=== PATIENT | male | born 1990 | race Caucasian/White ===

== ENCOUNTER 2021-09-22 11:19 | Emergency (ER) | payer OTHER, SELFPAY ==
[2021-09-22 11:20] VITALS: BP 148/87; PULSE 92; RESP 16; TEMP 36.4; O2SAT 100; O2SAT 98
--- NOTE | 2021-09-22 12:46 | ED.GENADULT ---
HPI - General Adult General Chief complaint: Unspecified Stated complaint: cough Time Seen by Provider: 09/22/21 11:38 Source: patient Mode of arrival: ambulatory Limitations: no limitations History of Present Illness HPI narrative: 30-year-old male here with complaints of 2weeks intermittent cough. Cough is nonproductive. Patient does states he has seasonal allergies which can affect him in the spring and or fall. Patient denies take any allergy medicine. Patient has taken NyQuil at night for the cough. Patient denies fever, body aches, chills, sick contacts, runny nose, congestion, or ear pain. Related Data Allergies Allergy/AdvReac Type Severity Reaction Status Date / Time No Known Allergies Allergy Verified 11/02/18 07:50 Review of Systems Review of Systems: CONSTITUTIONAL: Denies fever, chills, or sweats. EYES: Denies visual changes, redness, or discharge. ENT: Denies rhinorrhea, congestion, sore throat, or otalgia. CARDIOVASCULAR: Denies chest pain, palpitations, or edema. RESPIRATORY: Cough. Denies dyspnea. GASTROINTESTINAL: Denies abdominal pain, nausea, vomiting, or diarrhea. GENITOURINARY: Denies dysuria or hematuria. SKIN: Denies rash or itching. MUSCULOSKELETAL: Denies back pain, joint pain, or myalgia. NEUROLOGIC: Denies headache, numbness, dizziness, or weakness. PSYCHIATRIC: Denies anxiety or depression. [facility] Past Medical History Medical History (Updated 09/22/21 @ 12:02 by Kiesha Soliman APRN) Anal fissure Surgical History Surgical History (Updated 07/14/19 @ 13:36 by Damari Vergara) No pertinent past surgical history Social History Social History (Updated 07/14/19 @ 13:36 by Damari Vergara) Smoking status: Current some day smoker Exam Narrative: GENERAL: Well-appearing, well-nourished, and in no acute distress. HEAD: Normocephalic, atraumatic. EYES: PERRLA and EOMI. ENT: Nares clear, no rhinorrhea or epistaxis. Mucous membranes moist. Oropharynx without tonsillar hypertrophy exudate or other lesions. Bilateral TMs pearly perez nonbulging NECK: Supple. No adenopathy or masses. No carotid bruits or JVD CHEST: Clear to auscultation. No respiratory distress. No wheezes rales or rhonchi HEART: Regular rate and rhythm. No murmur heard. Normal peripheral pulses. ABDOMEN: Soft, nontender, nondistended, normal active bowel sounds. EXTREMITIES: Normal range of motion. No edema. SKIN: Warm, dry, no rash. NEURO: No focal deficits. Alert and oriented x3. PSYCH: Normal mood and affect. Course Vital Signs Vital signs: Vital Signs Temperature 36.4 C 09/22/21 11:20 Pulse Rate 92 09/22/21 11:20 Respiratory Rate 16 09/22/21 11:20 Blood Pressure 148/87 H 09/22/21 11:20 Pulse Oximetry 100 09/22/21 11:20 Temperature 36.4 C 09/22/21 11:20 Pulse Rate 92 09/22/21 11:20 Respiratory Rate 16 09/22/21 11:20 Blood Pressure 148/87 H 09/22/21 11:20 Pulse Oximetry 98 09/22/21 11:20 Medical Decision Making Differential Diagnosis Differential Diagnosis: Seasonal allergies, cough, bronchitis, URI Medical Records Medical records reviewed: Yes I reviewed the external patient's medical records. Vital Signs Vital Signs: Vital Signs Temperature 36.4 C 09/22/21 11:20 Pulse Rate 92 09/22/21 11:20 Respiratory Rate 16 09/22/21 11:20 Blood Pressure 148/87 H 09/22/21 11:20 Pulse Oximetry 100 09/22/21 11:20 Temperature 36.4 C 09/22/21 11:20 Pulse Rate 92 09/22/21 11:20 Respiratory Rate 16 09/22/21 11:20 Blood Pressure 148/87 H 09/22/21 11:20 Pulse Oximetry 98 09/22/21 11:20 Discharge Plan Discharge Clinical Impression: Bronchitis, Seasonal allergies Patient Disposition: Home, Self-Care Condition: Stable Instructions: Antibiotic Form Additional Instructions: Use fluticasone 2 sprays each nostril daily until symptoms are improving then may decrease to 1 spray each nostril daily. Use saline nasal spray as needed for
== END 2021-09-22 12:13 | disposition home or self-care (01) ==
PROVIDERS: Emergency Provider Nurse Practitioner Family
DX: J40 Bronchitis, not specified as acute or chronic (principal); J30.2 Other seasonal allergic rhinitis; F17.200 Nicotine dependence, unspecified, uncomplicated
CPT/HCPCS: 99283

== ENCOUNTER 2021-11-22 16:40 | Emergency (ER) | payer OTHER, SELFPAY ==
--- NOTE | ~2021-11-22 | XR_ITS ---
XR foot LT min 3V 11/22/2021 16:57 Indication: Left foot pain Procedure: 4 views left foot Comparison: No prior studies for comparison. Findings: No fracture, subluxation or dislocation. Lisfranc joint intact. There is a healed fifth met atarsal fracture. Impression: 1: No acute bone or joint abnormality. Reviewed, dictated and finalized at location A. Impression: 1: No acute bone or joint abnormality.
[2021-11-22 16:44] VITALS: BP 144/112; PULSE 100; RESP 20; TEMP 36.7; O2SAT 100
--- NOTE | 2021-11-22 18:09 | ED.LOWEXIN ---
HPI - Extremity Injury (Lower) General Chief Complaint: Extremity Injury, Lower Stated Complaint: fall Time Seen by Provider: 11/22/21 17:04 Source: patient Mode of arrival: wheelchair Limitations: no limitations History of Present Illness HPI Narrative: This is a 30 year old male that presents to the ER for an injury to his left foot sustained just prior to arrival. Reports he tripped and twisted his left foot. Reports swelling and pain to the dorsal aspect. Reports decreased ROM due to pain. Denies numbness. Related Data Allergies Allergy/AdvReac Type Severity Reaction Status Date / Time No Known Allergies Allergy Verified 11/02/18 07:50 Review of Systems Review of Systems: CONSTITUTIONAL: Denies fever MUSCULOSKELETAL: Reports joint pain, and myalgia. NEUROLOGIC: Denies numbness, or weakness. All systems reviewed & are unremarkable except as noted in HPI and below PMFSH Past Medical History Medical History (Updated 11/22/21 @ 18:16 by Zari Bell PA-C) Anal fissure Surgical History Surgical History (Updated 07/14/19 @ 13:36 by Damari Vergara) No pertinent past surgical history Social History Social History (Updated 07/14/19 @ 13:36 by Damari Vergara) Smoking status: Current some day smoker Exam Narrative: GENERAL: Well-appearing, well-nourished, and in no acute distress. HEAD: Normocephalic, atraumatic. EYES: EOMI. EXTREMITIES: Normal range of motion. Mild edema about the left foot dorsal surface. Normal DP pulse. Normal sensation SKIN: Warm, dry, no rash. NEURO: No focal deficits. Alert and oriented x3. PSYCH: Normal mood and affect Course Vital Signs Vital signs: Vital Signs Temperature 98.0 F 11/22/21 16:44 Pulse Rate 100 11/22/21 16:44 Respiratory Rate 20 11/22/21 16:44 Blood Pressure 144/112 H 11/22/21 16:44 Pulse Oximetry 100 11/22/21 16:44 Oxygen Delivery Room Air 11/22/21 16:44 Temperature 98.0 F 11/22/21 16:44 Pulse Rate 100 11/22/21 16:44 Respiratory Rate 20 11/22/21 16:44 Blood Pressure 144/112 H 11/22/21 16:44 Pulse Oximetry 100 11/22/21 16:44 Oxygen Delivery Room Air 11/22/21 16:44 MDM - Extremity Injury (Lower) MDM Narrative Medical decision making narrative: Patient presents to the emergency department for a left foot injury sustained just prior to arrival. Patient is neurovascularly intact. Left foot x-rays without acute osseous abnormalities. Patient was instructed on care of foot sprain. Placed in Luis wrap and given crutches. He is to follow-up with primary care doctor. He was given warnings to return to the ER Imaging Data Radiologist's impression: ITS Impressions Foot X-Ray 11/22/21 16:59 Impression: 1: No acute bone or joint abnormality. Critical Care Time Critical Care Time Critical Care Time: No Discharge Plan Discharge Clinical Impression: Foot sprain Qualifiers: Encounter type: initial encounter Laterality: left Qualified Code(s): S93.602A - Unspecified sprain of left foot, initial encounter Patient Disposition: Home, Self-Care Condition: Stable Instructions: Foot Sprain (ED) Additional Instructions: Return to the emergency department if you experience fever, redness and swelling of your foot, numbness, or any other symptoms that are concerning to you Wear LUIS wrap and use crutches. No weight on the affected leg until able to bear weight without pain. Ice and elevate extremity. Pain medication as needed and directed. Follow up with primary care doctor for further care. Prescriptions: No Action ibuprofen [IBU] 600 mg tablet 600 mg PO Q6H PRN (Reason: pain) Qty: 20 0RF albuterol sulfate 90 mcg/actuation HFA aerosol inhaler 2 puff inhalation QID PRN (Reason: shortness of breath or wheezing) Qty: 8.5 0RF (DME) Space Chamber Spacer See Rx Instructions .Route Qty: 1 0RF Rx Instructions: As directed fluticasone propionate [Allergy
[2021-11-22 18:29] VITALS: BP 116/68; PULSE 78; RESP 16; O2SAT 100
== END 2021-11-22 18:30 | disposition home or self-care (01) ==
PROVIDERS: Emergency Provider Emergency Medicine
DX: S93.602A Unspecified sprain of left foot, initial encounter (principal); F17.200 Nicotine dependence, unspecified, uncomplicated; W18.40XA Slipping, tripping and stumbling without falling, unspecified, initial encounter; X50.9XXA Other and unspecified overexertion or strenuous movements or postures, initial encounter
CPT/HCPCS: 73630; 99283

== ENCOUNTER 2021-11-27 16:23 | Outpatient (CLI) | payer OTHER, SELFPAY ==
--- NOTE | ~2021-11-27 | XR_ITS ---
EXAMINATION: XR foot LT min 3V DATE: 11/27/2021 16:59 INDICATION: Left foot pain and swelling. Fall. TECHNIQUE: 4 views of left foot were obtained. COMPARISON: Left foot radiographs 11/22/2021 FINDINGS: There is lateral subluxation of second-fourth metatarsals with respect to the tarsal bones, consistent with Lisfranc joint dislocation. There is an old healed fracture of diaphysis of fifth me tatarsal. No acute fracture. There is mild osteoarthritis of first metatarsophalangeal joint. There i s soft tissue swelling of the forefoot. IMPRESSION: 1. Lisfranc joint dislocation. Reviewed, dictated and finalized at location A.
== END 2021-11-27 16:24 | disposition home or self-care (01) ==
DX: S93.335A Other dislocation of left foot, initial encounter (principal); X58.XXXA Exposure to other specified factors, initial encounter
CPT/HCPCS: 73630

== ENCOUNTER 2021-12-13 01:29 | Day surgery (SDC) | payer OTHER, SELFPAY ==
[2021-12-06 09:51] VITALS: BMI 50.1
--- NOTE | 2021-12-06 09:56 | PC.NURSE ---
Report to the Outpatient Waiting Room, entrance under the green pavilion located off [facility], at time 0600 on date 12/13/21. OR Time: 0730. - You and your visitor will be asked a series of questions to screen for COVID 19 for your protection. - Only one visitor is allowed at this time. - The patient visitor is requested to leave or wait in car when not with patient. - A mask is required within the hospital. Patients may have clear liquids (water, carbonated beverages, clear teas, apple juice) until 3 hours prior to surgery with a maximum of 20 ounces. - No food from midnight until time of surgery Take the following medications with a SIP of water the morning of surgery: NONE Medications to discontinue per physician: N/A Date to take last dose: N/A Please no make-up, nail belizean, hairspray, perfume, deodorant, or body powder the day of surgery. No jewelry (including any body piercings) or valuables the day of surgery, leave them at home. Please take a shower or bath the night before, or the morning of, surgery with an antibacterial soap. Wear comfortable, loose fitting clothing. - Jewelry must be removed prior to entering the operating room. Rings and piercings that are not removed may be cut off. - The hospital will not accept responsibility for valuables. - Please leave all valuables, including medications, at home the day of surgery. If you are going home after surgery, a licensed tow bar driver must drive you home. - NO public transportation without another adult. - We recommend that an adult stay with you for 24 hours following discharge. - We also recommend that you do not drive, make important decision, drink alcoholic beverages, or take any drugs that were not prescribed by your health care provider for at least 24 hours after your discharge time. Follow any additional instructions given to you from your surgeon. If you or anyone in your household have experienced Covid symptoms in the past week, please notify your surgeon or the nurse liaison at the phone number below for possible testing. Telephone instructions given to PT - VICTORIA SOLER and asked if any additional questions and then verbalized understanding. Patient advised to call surgeon office or pre surgery nurse liaison [phone] if any additional questions.
[2021-12-13] VITALS (9 sets, daily range): BP systolic 112–163; BP diastolic 70–100; PULSE 75–116; RESP 11–18; TEMP 36.8–36.9; O2SAT 95–98
--- NOTE | ~2021-12-13 | XR_ITS ---
EXAMINATION: XR surgery orthopedic DATE: 12/13/2021 09:00 INDICATION: ORIF left foot TECHNIQUE: 3 fluoroscopic images of the left midfoot were obtained during procedure performed by Dr. Bhatti. Radiologist was not present for the imaging or procedure. The amount of fluoroscopy time use d during this procedure was 0.3 minutes. COMPARISON: 11/27/2021 FINDINGS: Interval open reduction internal fixation of the previous noted Lisfranc joint injury with prior mild lateral subluxation of the second-fourth tarsal metatarsal joints. The lateral subluxation appears t o been reduced to essentially anatomic alignment. There is dorsal plate and screw fixation across the second tarsal metatarsal joint. Small fixation plate seen at the lateral margin of the base of the s econd metatarsal likely for tightrope type fixation along the course of the likely ruptured Lisfranc ligament complex. Sponge marker projects medial to the midfoot. No fractures identified. Expected sma ll amount of postoperative gas in the soft tissues about the base of the second metatarsal. IMPRESSION: 1. Near-anatomic alignment post reduction and internal fixation of a Lisfranc joint injury with prior mild lateral subluxation at the second-fourth tarsal metatarsal joints. See procedure note for furth er detail. Reviewed, dictated and finalized at location A. IMPRESSION: 1. Near-anatomic alignment post reduction and internal fixation of a Lisfranc j oint injury with prior mild lateral subluxation at the second-fourth tarsal met atarsal joints. See procedure note for further detail.
[2021-12-13] MEDS: LACTATED RINGERS 1,000 ML 30 ML IV CONT (06:45)
--- NOTE | 2021-12-13 06:52 | WPDANESEPPF ---
Anes - Initial Pre Proc Eval Procedure: Operation Date: 12/13/21 07:30 Proposed Procedures p Open Reduction Internal Fixation Left Foot Lisfranc - José Antonio Bhatti MD Date/Time: 12/13/21 06:52 Surgeon: José Antonio Bhatti MD Pre Op Diagnosis: left foot lisfranc injury Patient Data Age: 31 Gender: M Height: 1.83 m Weight: 167.83 kg Allergies Allergy/AdvReac Type Severity Reaction Status Date / Time No Known Allergies Allergy Verified 12/06/21 09:50 Home Medications Medication Instructions Recorded Confirmed Type No Home Medications 12/06/21 12/06/21 History Patient hx anesthesia problems: none Family hx anesthesia problems: none Results Review: All pre-operative results and documents have been reviewed as part of the pre-operative evaluation. 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 [employer] Gender identity (if verbalized by the patient): Male Spiritual care concerns: No Anes - Eval Final PreProcedure Day of Procedure 12/13/21 06:52 Patient weight: super morbidly obese Heart: regular rate and rhythm Lungs: clear to auscultation Airway: Mallampati scale class II Neurological: alert and oriented Last oral intake: >/= 8 hours ASA classification: III Emergent: no Anesthetic plan: proceed Anesthesia type and monitoring: general LMA and standard monitoring Results Review: All pre-operative results and documents have been reviewed as part of the pre-operative evaluation. Informed Consent: The patient's anesthetic plan and its attendant risks and benefits were discussed with the patient/family/POA. Questions were solicited and answers provided to the satisfaction of the patient/family/POA.
--- NOTE | 2021-12-13 07:09 | WPDHPUPDATE1 ---
History and Physical Update Update Date/Time: 12/13/21 07:09 History and Physical has been reviewed, including an updated exam of the patient. There are NO changes in the patient's condition. Risks, benefits, and alternatives have been discussed and questions answered. Patient agrees to proceed with procedure.
[2021-12-13] MEDS: KETOROLAC 15 MG/ML VIAL (*BKC) IV PUSH (07:10)
[2021-12-13] MEDS: ACETAMINOPHEN 500 MG TABLET 1000 MG PO (07:10)
[2021-12-13] MEDS: ceFAZolin 3 GM/D5W 100 ML 100 ML IVPB (07:27)
[2021-12-13] MEDS: BUPIVACAINE HCL 0.5% PF 30 ML VIAL 20 ML INFILTRATE (08:08)
--- NOTE | 2021-12-13 09:25 | W.PM.PROC2 ---
Procedure Note - Detailed Date of Procedure 12/13/21 Pre-op Diagnosis left foot lisfranc injury Post-op Diagnosis Same Procedure Performed Open reduction internal fixation left foot Lisfranc dislocation (tarsal metatarsal dislocation) Surgeon José Antonio Bhatti MD Administrative Intern television production assistant Anesthesia General Indications 31-year-old gentleman fell twisting left foot. Sustained a dislocation of the tarsometatarsal joint complex/Lisfranc joint. Presents for operative treatment. Description of Procedure Patient identified in the preoperative holding. Informed consent given. Operative extremity marked. Patient received intravenous antibiotics. Patient brought to the operating room where underwent general anesthetic by anesthesia team. Positioned supine on operating room table. Time-out performed confirming the patient, site of the surgery and the plan. Left foot prepped draped usual sterile surgical fashion using ChloraPrep skin solution. Foot and Ankle exsanguinated and thigh tourniquet inflated to 300 mmHg. Dorsal longitudinal incision made at the 2nd tarsometatarsal joint with 15 blade knife. Hemostasis controlled electrocautery. Neurovascular elements protected dissection carried down to the dorsal capsule. There was noted to be disruption the capsule lateral displacement of the metatarsal. Joint was able to be distracted and cleaned out with a dental pick and irrigation. Is to be fracture fragments on the plantar aspect. Joint had some mild traumatic changes noted mainly on the cuneiform side. Joint was then reduced and provisionally clamped in verified with image intensification. Fixation was achieved with a internal brace using a guide pin from the 2nd metatarsal through the medial cuneiform. The internal brace was then passed and secured on the cuneiform with a 3.5 mm composite screw. A 4 hole dorsal neutralization plate was then placed with 2 holes distal and 2 holes proximal to the tarsometatarsal joint. Image intensification confirmed alignment of the joint and placement of the hardware. Wound was thoroughly irrigated antibiotic solution. Soft tissue was closed in layers with 3-0 Monocryl interrupted suture. The skin was approximated with 4-0 nylon running suture. Sterile dressing applied. The patient was then woken from anesthesia, extubated and taken to the recovery room in stable condition. All sponge, needle, instrument counts were correct at the end of the case. Implants Arthrex 4 hole dorsal plate with 3.0 mm screws, internal brace. Estimated Blood Loss 5 Tourniquet Time 60 Drains No Packing No Pathology None sent Complications None Condition Stable Disposition PACU
[2021-12-13] MEDS: ONDANSETRON INJ 4 MG/2 ML VIAL IV PUSH (09:33)
[2021-12-13] MEDS: diphenhydrAMINE HCl INJ 50 MG/ML VIAL 25 MG IV PUSH (09:48)
[2021-12-13] MEDS: SCOPOLAMINE 1.5 MG PATCH TRANSDERM (09:48)
[2021-12-13] MEDS: oxyCODONE HCL (*CRX) 5 MG TAB IR PO (11:00)
== END 2021-12-13 11:04 | disposition home or self-care (01) ==
PROVIDERS: Visit Provider Orthopaedic Surgery
PROC: (CPT 28485; principal; 2021-12-13 07:30)
DX: S93.325A Dislocation of tarsometatarsal joint of left foot, initial encounter (principal); X50.0XXA Overexertion from strenuous movement or load, initial encounter; E66.01 Morbid (severe) obesity due to excess calories; Z68.42 Body mass index [BMI] 45.0-49.9, adult; Z79.51 Long term (current) use of inhaled steroids; F17.210 Nicotine dependence, cigarettes, uncomplicated
CPT/HCPCS: 28615; A9270; J0690; J1100; J1200; J1885; J2250; J2270; J2405; J2704; J3010; J7120